=== PATIENT | female | born 1935 | race Caucasian/White ===

== ENCOUNTER 2023-12-28 11:52 | Observation (INO) | payer MEDICARE, BC ==
[~2023-12-28] VITALS: Ht 167.6 cm; Wt 114.1 kg
[~2023-12-28 11:52] MED LIST: LEVO25TA7 PO
[2023-12-28 13:33] LABS: BASOPHILS # (AUTO) 0.1 X10'3 (0-0.2); BASOPHILS % (AUTO) 0.8 % (0-1); EOSINOPHILS # (AUTO) 0.1 X10'3 (0-0.9); EOSINOPHILS % (AUTO) 0.8 % (0-6); HEMATOCRIT 36.2 % (35.0-45.0); HEMOGLOBIN 11.9 g/dl (12.0-16.0); LYMPHOCYTES # (AUTO) 1.5 X10'3 (1.1-4.8); LYMPHOCYTES % (AUTO) 19.8 % (21-51); MEAN CORPUSCULAR HEMOGLOBIN 29.9 PG (27.0-31.0); MEAN CORPUSCULAR HGB CONC 32.8 g/dL (33.0-36.5); MEAN CORPUSCULAR VOLUME 91.1 FL (78-98); MEAN PLATELET VOLUME 8.8 FL (7.4-10.4); MONOCYTES # (AUTO) 0.6 X10'3 (0-0.9); MONOCYTES % (AUTO) 7.9 % (2-12); NEUTROPHILS # (AUTO) 5.3 X10'3 (1.8-7.7); NEUTROPHILS % (AUTO) 70.7 % (42-75); PLATELET COUNT 206 X10'3 (140-440); RED BLOOD COUNT 3.98 X10'6 (4.20-5.60); RED CELL DISTRIBUTION WIDTH 14.4 % (11.5-14.5); WHITE BLOOD COUNT 7.5 X10'3 (4.5-11.0)
[2023-12-28 13:50] LABS: ALBUMIN 3.5 G/DL (3.4-5.0); ANION GAP 8 (8-16); BLOOD UREA NITROGEN 16 MG/DL (7-18); BUN/CREATININE RATIO 11.2 (10.0-20.0); CHLORIDE 106 MMOL/L (99-107); CREATININE 1.43 MG/DL (0.40-0.90); GLUCOSE 103 MG/DL (70-104); POTASSIUM 4.2 MMOL/L (3.5-5.1); SODIUM 142 MMOL/L (135-145); eCRCL 25 ML/MIN; eGFR 35 ML/MIN
[2023-12-28 14:24] LABS: BILIRUBIN,URINE NEGATIVE (Neg); CLARITY,URINE SLIGHTLY CLOUDY (Clear); COLOR,URINE YELLOW (Yellow); GLUCOSE, URINE NEGATIVE (Neg); KETONES,URINE NEGATIVE (Neg); LEUKOCYTE ESTERASE ,URINE MODERATE (Neg); NITRITES, URINE POSITIVE (Neg); OCCULT BLOOD,URINE TRACE-INTACT (Neg); PROTEIN,URINE NEGATIVE (Neg); UROBILINOGEN,URINE 0.2 E.U/dL (0.2-1.0)
[2023-12-28 14:46] LABS: UA COLLECTION TYPE OTHER
[2023-12-28 14:48] LABS: WBC,URINE TNTC /HPF (0-4)
[2023-12-28 14:49] LABS: BACTERIA,URINE 3+ /HPF (Neg); RBC,URINE 0-2 /HPF (0-2); SQUAMOUS EPITHELIAL CELL,UR MODERATE /LPF (FEW); WBC CLUMPS,URINE MODERATE /HPF (NEGATIVE)
[2023-12-28 14:50] LABS: MUCUS STRANDS MODERATE /LPF (Neg); TRANSITIONAL EPI CELLS,URINE MODERATE /HPF
[2023-12-28] MEDS: CefTRIAXone 2gm/D5W 50ml BAG 50 ML IV ONE (15:43)
[2023-12-28] MEDS: normal saline 1000ml 1,000 ML IV ONE (15:43)
[2023-12-28] MEDS ORDERED: potassium Cl 40MEQ/1/2NS 520ml 520 ML IV PRN (15:45)
[2023-12-28] MEDS ORDERED: ondansetron/PF 4mg/2ml inj IV PRN (15:45)
[2023-12-28] MEDS ORDERED: magnesium Cl slow-release 64mg tablet PO PRN (15:45)
[2023-12-28] MEDS ORDERED: potassium Cl 20 mEq SR tablet PO PRN ×2 (15:45)
[2023-12-28] MEDS ORDERED: magnesium sulf-water 4G/100mL 100 ML IV PRN (15:45)
[2023-12-28] MEDS ORDERED: magnesium sulf-water 2g/50mL 50 ML IV PRN (15:45)
[2023-12-28] MEDS ORDERED: acetaminophen 325mg tablet PO PRN ×2 (15:45)
[2023-12-28] MEDS ORDERED: HYDROcodone/acetaminophen 5mg/325mg tablet PO PRN (15:45)
[2023-12-28] MEDS ORDERED: morphine 2 MG/ML inj. syringe IV PRN (15:45)
[2023-12-28] MEDS ORDERED: hydrALAZINE 25 MG tablet PO PRN (15:55)
[2023-12-28] MEDS: normal saline 1000ml 1,000 ML IV SCH (17:17)
[2023-12-28] MEDS: amLODIPine 5mg tablet PO SCH (17:18)
[2023-12-28] MEDS ORDERED: temazepam 15mg capsule PO PRN (21:00)
[2023-12-28 22:00] VITALS: BP 159/60; PULSE 74; RESP 14; TEMP 97.8; O2SAT 94; O2SAT 95
[2023-12-28] MEDS: heparin, porcine 5000 units/ml vial SQ SCH (22:19)
[2023-12-28] MEDS ORDERED: POTA-192 PO (23:40)
[2023-12-28] MEDS ORDERED: HYDR25TA90 PO (23:40)
[2023-12-28] MEDS ORDERED: LEVO137T2 PO (23:40)
[2023-12-28] MEDS ORDERED: MAGN400O6 PO (23:40)
[2023-12-28] MEDS ORDERED: FURO-150 PO (23:40)
[2023-12-28] MEDS ORDERED: BISA10SU60 RC (23:40)
[2023-12-28] MEDS ORDERED: MULT-1085 PO (23:40)
[2023-12-28] MEDS ORDERED: ACET-1008 PO (23:40)
[2023-12-28] MEDS ORDERED: AMLO2.5T2 PO (23:40)
[2023-12-28] MEDS ORDERED: DOCU-148 PO (23:40)
[2023-12-29] MEDS ORDERED: bisacodyl 10mg suppository rectal RC PRN (03:00)
[2023-12-29] MEDS ORDERED: acetaminophen 325mg tablet PO PRN (03:00)
[2023-12-29] MEDS ORDERED: hydrALAZINE 25 MG tablet PO PRN (03:00)
[2023-12-29] MEDS ORDERED: magnesium hydroxide 30ml (MOM) UD suspension PO PRN (03:00)
[2023-12-29 06:00] VITALS: BP 137/66; PULSE 71; RESP 18; TEMP 97.9; O2SAT 99
[2023-12-29 06:31] LABS: BASOPHILS # (AUTO) 0.1 X10'3 (0-0.2); BASOPHILS % (AUTO) 1.3 % (0-1); EOSINOPHILS # (AUTO) 0.2 X10'3 (0-0.9); HEMATOCRIT 34.1 % (35.0-45.0); HEMOGLOBIN 11.4 g/dl (12.0-16.0); LYMPHOCYTES # (AUTO) 1.9 X10'3 (1.1-4.8); MEAN CORPUSCULAR HEMOGLOBIN 30.3 PG (27.0-31.0); MEAN CORPUSCULAR HGB CONC 33.5 g/dL (33.0-36.5); MEAN CORPUSCULAR VOLUME 90.5 FL (78-98); MEAN PLATELET VOLUME 9.8 FL (7.4-10.4); MONOCYTES # (AUTO) 0.5 X10'3 (0-0.9); MONOCYTES % (AUTO) 10.1 % (2-12); NEUTROPHILS # (AUTO) 2.7 X10'3 (1.8-7.7); NEUTROPHILS % (AUTO) 49.6 % (42-75); PLATELET COUNT 193 X10'3 (140-440); RED BLOOD COUNT 3.77 X10'6 (4.20-5.60); RED CELL DISTRIBUTION WIDTH 14.2 % (11.5-14.5); WHITE BLOOD COUNT 5.4 X10'3 (4.5-11.0)
[2023-12-29 06:54] LABS: ALANINE AMINOTRANSFERASE 15 U/L (12-78); ALBUMIN/GLOBULIN RATIO 0.9 (1.1-1.5); ALKALINE PHOSPHATASE 78 IU/L (46-116); ANION GAP 4 (8-16); ASPARTATE AMINO TRANSFERASE 17 U/L (10-37); BILIRUBIN,TOTAL 0.5 MG/DL (0.1-1.0); BLOOD UREA NITROGEN 15 MG/DL (7-18); BUN/CREATININE RATIO 15.2 (10.0-20.0); CALCIUM 8.4 MG/DL (8.5-10.1); CHLORIDE 109 MMOL/L (99-107); CREATININE 0.99 MG/DL (0.40-0.90); GLUCOSE 87 MG/DL (70-104); POTASSIUM 3.6 MMOL/L (3.5-5.1); SODIUM 141 MMOL/L (135-145); TOTAL CARBON DIOXIDE 28.5 MMOL/L (24-32); TOTAL PROTEIN 6.2 G/DL (6.4-8.2); eCRCL 36 ML/MIN; eGFR 53 ML/MIN
[2023-12-29] MEDS: levoTHYROXINE 112mcg tablet PO SCH (07:37)
[2023-12-29] MEDS: levoTHYROXINE 25mcg tablet PO SCH (07:37)
[2023-12-29] MEDS: docusate sod 100mg capsule PO SCH (07:38)
[2023-12-29] MEDS: CefTRIAXone 2gm/D5W 50ml BAG 50 ML IV SCH (07:38)
[2023-12-29] MEDS: multivitamins, therapeutics tablet PO SCH (07:38)
[2023-12-29] MEDS: potassium chloride 10mEq ER tablet PO SCH (07:38)
[2023-12-29] MEDS: furosemide 20MG tablet PO SCH (07:38)
[2023-12-29] MEDS ORDERED: amLODIPine 5mg tablet PO SCH (08:00)
[2023-12-29 08:45] VITALS: RESP 18; O2SAT 99
[2023-12-29 10:00] VITALS: BP 104/46; PULSE 65; RESP 18; TEMP 98.1; O2SAT 99
[2023-12-29] MEDS ORDERED: CIPR-202 PO (14:52)
== END 2023-12-29 15:10 | disposition home or self-care (01) ==
LOC: ER 11:53 → ED HOLD 15:51 → SUR 3N 22:16
PROVIDERS: ADMIT Internal Medicine; ATTEND Internal Medicine
DX: A41.9 Sepsis, unspecified organism (principal); R65.20 Severe sepsis without septic shock; N39.0 Urinary tract infection, site not specified; I11.0 Hypertensive heart disease with heart failure; I50.30 Unspecified diastolic (congestive) heart failure; N17.9 Acute kidney failure, unspecified; E86.0 Dehydration; G93.41 Metabolic encephalopathy; E03.9 Hypothyroidism, unspecified; Z79.899 Other long term (current) drug therapy
CPT/HCPCS: 70450; 80048; 80053; 81001; 82948; 83605; 84145; 84484; 87040; 87077; 87186; 93005; 96361; 96365; 96366; 96372; 97161; 99285; A6446; G0378; 36415; 71045; 85025; 85651; 87081; 87088; 97116; 97530; A4353; A6449; J0696; J1644; J7030